=== PATIENT | male | born 1955 | race Two or more races ===

== ENCOUNTER 2018-05-06 11:52 | Emergency (ER) | payer MEDICAID ==
[~2018-05-06] VITALS: Ht 160 cm; Wt 53.5 kg
[2018-05-06 11:58] VITALS: Ht 160 cm; Wt 53.5 kg
[2018-05-06 13:31] VITALS: BP 124/79
== END 2018-05-06 13:31 | disposition home or self-care (01) ==
LOC: ED 11:52
DX: S22.42XA Multiple fractures of ribs, left side, initial encounter for closed fracture (principal); V69.9XXA Occupant (driver) (passenger) of heavy transport vehicle injured in unspecified traffic accident, initial encounter; Y93.89 Activity, other specified; Y92.89 Other specified places as the place of occurrence of the external cause; Y99.8 Other external cause status